=== PATIENT | male | born 1960 | race Caucasian/White ===

== ENCOUNTER 2018-06-03 16:07 | Emergency (ER) | payer OTHER ==
--- NOTE | 2018-06-03 16:22 | EDPHY ---
H & P Stated Complaint: RIGHT FOOT PAIN, WEARING WALKING BOOT X1MO Time Seen by Provider: 06/03/18 16:19 HPI/ROS: CHIEF COMPLAINT: Right foot pain HISTORY OF PRESENT ILLNESS: The patient is a 58 y/o male with a history of TBI 35 years ago complaining of right foot pain for the last 1.5 months. Around that time he went on a long walk on an uneven surface and thinks he injured it during that walk. The following day he developed pain along the ball and sole of his foot. Pain has been present since then and is now on the sides of his foot as well. He has been intermittently wearing a walking boot he had at home since onset. Pain is aggravated by standing on the ball of his foot. Pain does not radiate and is not associated with weakness or paresthesias. He had an [place]- ray performed at the [place] at some point and was told there was no fracture. He has not been taking anything for pain. REVIEW OF SYSTEMS: A ten system review of systems was performed and is negative with the exception of the items mentioned in the HPI. Past medical history: 1. 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 Anxiety 3. Encephalomalacia on head CT 2008 Past surgical history: 1. Tracheotomy due to brain injury 2. Eye muscle realignment in right eye 1983 3. Splenectomy Family history: Noncontributory Social history: On disability due to TBI. Prior [employer] service. Never smoker. Lives in [place]. PCP: [place]. Prior medical records reviewed including admission 06/06/09 for chest pain. General Appearance: Alert. Vital signs reviewed. Eyes: Pupils equal and round, no conjunctival injection, no discharge. Anicteric. ENT, Mouth: Mucous membranes are moist, no oropharyngeal erythema or edema. Neck: No lymphadenopathy, supple. Respiratory: Lungs are clear to auscultation; no wheezes, rales, or rhonchi. Cardiovascular: Regular rate and rhythm; no murmur, rub, or gallop. Gastrointestinal: Abdomen is soft and nontender, no masses or organomegaly. Skin: Warm and dry, no rashes on exposed skin, normal color. Back: Nontender to palpation over the thoracolumbar spine. No CVAT. Extremities: Right foot: No bony or soft tissue tenderness. No deformity, no masses palpated. No open wounds, skin is dry with some superficial cracks on the skin of his heel. No lower extremity edema, no calf tenderness or swelling. FAROM right ankle. Pulses: 2+ dorsalis pedis pulse right foot. Neurological: Alert and oriented. Moving all four extremities easily and equally. Sensation intact to light touch over right LE. - Personal History Current Tetanus/Diphtheria Vaccine: Unsure - Medical/Surgical History Hx Asthma: No Hx Chronic Respiratory Disease: No Hx Diabetes: No Hx Cardiac Disease: No Hx Renal Disease: No Hx Cirrhosis: No Hx Alcoholism: No Hx HIV/AIDS: No Hx Splenectomy or Spleen Trauma: No Other PMH: 1982- [facility], TRACHEOTOMY AND EYE MUSCLE SURG 1983, SPLEENECTOMY, ANXIETY - Social History Smoking Status: Never smoked Constitutional: Initial Vital Signs Temperature (C) 36.5 C 06/03/18 16:10 Heart Rate 77 06/03/18 16:10 Respiratory Rate 18 06/03/18 16:10 Blood Pressure 134/82 H 06/03/18 16:10 O2 Sat (%) 95 06/03/18 16:10 O2 Delivery Mode Room Air Allergies/Adverse Reactions: No Known Allergies Allergy (Verified 06/03/18 16:10) Home Medications: Medication Instructions Recorded NK [No Known Home Meds] 03/21/13 Medical Decision Making - Diagnostics Imaging: I viewed and interpreted images myself ED Course/Re-evaluation: This is a 58 y/o male with a history of TBI who presents with a 6-week history of left foot pain that began after a long walk. Pain has not improved with a walking boot. Exam is unremarkable and I cannot reproduce his pain. Doubt fracture, but will rule out with x-ray. Patient will likely require podiatry evaluation. Right foot x-ray: pending. Patient has refused x-ray. He will be discharged home with referral to media supervisor for follow up. Standard care and return precautions discussed. Differential Diagnosis: I considered a differential diagnosis that includes but is not limited to fracture, sprain, strain, plantar fasciitis, neuroma, other soft tissue injury. Departure - Departure Disposition: Home, Routine, Self-Care Clinical Impression: Right foot pain Condition: Good Instructions: Arthralgia (ED) Additional Instructions: 1. Tylenol and ibuprofen as directed as needed for pain and inflammation over the next few days. See instructions below. 2. Apply ice pack with towel underneath it to sore areas for 20 minutes at a time 4-5 times per day for the next two days. 3. Follow up with media supervisor this week. You've been referred to Dr. Meehan locally. 4. Return for worsening of condition. Adult Pain & Fever Control: We recommend Acetaminophen (Tylenol) and Ibuprofen (Motrin,Advil) for pain and fever control. When fever is high or pain severe, both drugs can be used at the same time, but at different intervals. Please note the time differences. Your dose is: Acetaminophen 650mg every 4 to 6 hours Ibuprofen 600mg every 8 hours with food Note: do not take Acetaminophen with Hydrocodone (Vicodin, Lortab) or Oxycodone (Percocet). These medications also contain Acetaminophen. No more than 3000mg of Acetaminophen should be taken in 24 hours (for an adult). Referrals: Nikki Meehan DPM [Doctor of Podiatric Medicine] - As per Instructions Report Scribed for: Allyson Zavala Report Scribed by: Pearl Kerns Date of Report: 06/03/18 Time of Report: 16:29 Physician Review and Approval Statement: 06/03/18 16:22 Portions of this note were transcribed by the medical office professional instructor. I, Dr. Allyson Zavala, personally performed the history, physical exam, and medical decision- making; and confirmed the accuracy of the information in the transcribed note.
[2018-06-03 17:19] VITALS: BP 134/83
== END 2018-06-03 17:24 | disposition home or self-care (01) ==
DX: M79.671 Pain in right foot (principal)